=== PATIENT | male | born 1955 | race Caucasian/White ===

== ENCOUNTER 2017-02-19 20:09 | Inpatient (IN) | payer SELFPAY ==
[~2017-02-19] VITALS: Ht 180.3 cm; Wt 68.7 kg
[~2017-02-19 20:09] MED LIST: HYDROCODON ACETAMINOPH
[2017-02-19 21:17] LABS: Basophils # (auto) 0 uL; Basophils % (auto) 0.4 % (0.0-2.0); Eosinophils # (auto) 0.1 uL; Eosinophils % (auto) 1.4 % (0.0-7.0); Hematocrit 41.8 % (41.0-53.0); Hemoglobin 14.1 g/dL (13.5-17.5); Lymphocytes # (auto) 0.6 uL; Lymphocytes % (auto) 6.9 % (10.0-50.0); Mean Corpuscular Hgb Conc. 33.7 g/dL (32.0-36.0); Mean Corpuscular Volume 86.1 fL (80.0-100.0); Monocytes % (auto) 11.8 % (0.0-12.0); Neutrophils # (auto) 6.8 uL; Neutrophils % (auto) 79.5 % (37.0-80.0); Platelet Count (auto) 202 10^3/uL (140-450); Red Cell Distribution Width 13.9 % (11.6-16.0); White Blood Cell 8.5 10^3/uL (4.4-10.8)
[2017-02-19 21:35] LABS: Albumin 3.8 g/dL (3.4-5.0); BUN/Creatinine Ratio 18.2; Calcium 8.4 mg/dL (8.5-10.1); Potassium 3.7 mmol/L (3.5-5.1)
[2017-02-19 21:38] LABS: Bilirubin, Total 0.6 mg/dL (0.2-1.0); Total Protein 7.2 g/dL (6.4-8.2)
[2017-02-19 23:52] LABS: Urine Bilirubin Negative (Negative); Urine Blood Negative /uL (Negative); Urine Color Yellow (Yellow); Urine Glucose Normal (Normal); Urine Granular Cast FEW /lpf (0); Urine Hyaline Cast MANY /lpf (0 - 2); Urine Ketone Negative (Negative); Urine Mucus FEW (None Seen); Urine Nitrite Negative (Negative); Urine RBC 2 /hpf (0 - 3); Urine Squamous Epithelial Cell FEW /hpf (<5); Urine Urobilinogen Normal (Negative); Urine WBC Clumps PRESENT /hpf (None Seen); Urine pH 5.5 (5.0-8.0)
[2017-02-20] MEDS ORDERED: CLINDAMYCIN 300 MG IV ONE (03:49)
[2017-02-20] MEDS ORDERED: CLINDAMYCIN 900MG IV 50 ML IV ONE ×2 (05:30→10:00)
[2017-02-20 05:44] LABS: INR 0.96 (0.9-1.15); Partial Thromboplastin Time 26.6 sec (22.64-33.71); Prothrombin Time 10.4 sec (9.37-12.3)
[2017-02-20 06:09] LABS: Potassium 3.4 mmol/L (3.5-5.1)
[2017-02-20 06:10] LABS: Albumin 3.3 g/dL (3.4-5.0); BUN/Creatinine Ratio 20.6; Bilirubin, Total 0.5 mg/dL (0.2-1.0); Calcium 8.2 mg/dL (8.5-10.1); Total Protein 6.8 g/dL (6.4-8.2)
[2017-02-20 06:12] LABS: Basophils # (auto) 0 uL; Basophils % (auto) 0.6 % (0.0-2.0); Eosinophils # (auto) 0.2 uL; Hematocrit 38.9 % (41.0-53.0); Hemoglobin 13.3 g/dL (13.5-17.5); Lymphocytes # (auto) 0.7 uL; Lymphocytes % (auto) 11.8 % (10.0-50.0); Mean Corpuscular Hemoglobin 29.5 pg (28.0-32.0); Mean Corpuscular Volume 86.5 fL (80.0-100.0); Mean Platelet Volume 9.3 fL (7.4-10.4); Monocytes # (auto) 0.9 uL; Neutrophils % (auto) 67.6 % (37.0-80.0); Platelet Count (auto) 187 10^3/uL (140-450); Red Cell Distribution Width 14.3 % (11.6-16.0); White Blood Cell 5.9 10^3/uL (4.4-10.8)
[2017-02-20 06:21] LABS: Magnesium 2.2 mg/dL (1.6-2.6)
[2017-02-20] MEDS ORDERED: SODIUM CHLORIDE 0.9% 1,000 ML IV SCH (07:07)
[2017-02-20] MEDS ORDERED: TEMAZEPAM 15 MG CAP PO PRN (07:15)
[2017-02-20] MEDS ORDERED: MORPHINE SULF INJ 2 MG/ML SYRINGE 1ML IV PRN (07:15)
[2017-02-20] MEDS ORDERED: ONDANSETRON HCL 4 MG/2 ML VIAL IV PRN (07:15)
[2017-02-20] MEDS ORDERED: ACETAMINOPHEN 325 MG TAB PO PRN (07:15)
[2017-02-20] MEDS ORDERED: NITROGLYCERIN 0.4 MG SL TAB SL PRN (07:15)
[2017-02-20] MEDS ORDERED: VANCOMYCIN 1GM/250ML D5W 250 ML IV ONE (10:00)
[2017-02-20] MEDS ORDERED: ENOXAPARIN SOD 30 MG/0.3 ML SYRINGE SC SCH (10:00)
[2017-02-20] MEDS: MULTIPLE VITAMIN TAB PO SCH (10:41)
[2017-02-20] MEDS: ASCORBIC ACID 500 MG TAB PO SCH ×2 (10:41→20:59)
[2017-02-20] MEDS: FAMOTIDINE 20 MG TAB PO SCH ×2 (10:41→20:59)
[2017-02-20] MEDS: VANCOMYCIN 1GM/250ML D5W 250 ML IV SCH ×2 (10:41→21:00)
[2017-02-20] MEDS: ENOXAPARIN SOD 40 MG/0.4 ML SYRINGE SC SCH (10:41)
[2017-02-20] MEDS: ZINC SULFATE 220 MG CAP PO SCH (10:43)
[2017-02-20 11:00] VITALS: BP 96/56
[2017-02-20 12:28] VITALS: BP 137/81
[2017-02-20] MEDS: MORPHINE SULF INJ 2 MG/ML SYRINGE 1ML IV PRN ×2 (13:10→20:17)
[2017-02-20] MEDS ORDERED: POTASSIUM CHL 20 Meq TABLET PO ONE (13:45)
[2017-02-20] MEDS: CLINDAMYCIN 900MG IV 50 ML IV SCH (16:40)
[2017-02-20 16:51] VITALS: BP 123/76
[2017-02-20 22:00] VITALS: BP 127/73
[2017-02-21] MEDS: MORPHINE SULF INJ 2 MG/ML SYRINGE 1ML IV PRN ×4 (00:23→20:41)
[2017-02-21] MEDS: CLINDAMYCIN 900MG IV 50 ML IV SCH (05:04)
[2017-02-21 05:55] LABS: Basophils # (auto) 0 uL; Eosinophils # (auto) 0 uL; Eosinophils % (auto) 0.2 % (0.0-7.0); Hematocrit 40.7 % (41.0-53.0); Hemoglobin 13.6 g/dL (13.5-17.5); Lymphocytes # (auto) 0.6 uL; Lymphocytes % (auto) 9.3 % (10.0-50.0); Mean Corpuscular Hemoglobin 29.1 pg (28.0-32.0); Mean Corpuscular Hgb Conc. 33.5 g/dL (32.0-36.0); Mean Platelet Volume 8.6 fL (7.4-10.4); Monocytes % (auto) 15.3 % (0.0-12.0); Neutrophils # (auto) 5.1 uL; Neutrophils % (auto) 75.2 % (37.0-80.0); Platelet Count (auto) 166 10^3/uL (140-450); Red Cell Distribution Width 13.8 % (11.6-16.0); White Blood Cell 6.8 10^3/uL (4.4-10.8)
[2017-02-21 06:00] VITALS: BP 128/67
[2017-02-21 06:51] LABS: Albumin 3.2 g/dL (3.4-5.0); BUN/Creatinine Ratio 16.8; Bilirubin, Total 0.8 mg/dL (0.2-1.0); Calcium 7.9 mg/dL (8.5-10.1); Magnesium 2.1 mg/dL (1.6-2.6); Potassium 4.3 mmol/L (3.5-5.1); Total Protein 6.2 g/dL (6.4-8.2)
[2017-02-21] MEDS: SODIUM CHLORIDE 0.9% 1,000 ML IV SCH ×2 (07:07→21:25)
[2017-02-21 08:00] VITALS: BP 138/68
[2017-02-21] MEDS: VANCOMYCIN 1GM/250ML D5W 250 ML IV SCH ×2 (09:12→21:59)
[2017-02-21] MEDS ORDERED: VANCOMYCIN PER PHARMACY 0 MG IV SCH (10:15)
[2017-02-21] MEDS: MULTIPLE VITAMIN TAB PO SCH (10:19)
[2017-02-21] MEDS: ASCORBIC ACID 500 MG TAB PO SCH ×2 (10:19→21:52)
[2017-02-21] MEDS: FAMOTIDINE 20 MG TAB PO SCH ×2 (10:19→21:52)
[2017-02-21] MEDS: ZINC SULFATE 220 MG CAP PO SCH (10:19)
[2017-02-21] MEDS: ENOXAPARIN SOD 40 MG/0.4 ML SYRINGE SC SCH (10:20)
[2017-02-21 12:00] VITALS: BP 142/89
[2017-02-21 17:00] VITALS: BP 145/69
[2017-02-21] MEDS ORDERED: LEVOFLOXACIN 500MG 100 ML IV SCH (21:00)
[2017-02-21 22:00] VITALS: BP 140/77
[2017-02-21] MEDS: CLINDAMYCIN 600MG IV 50 ML IV SCH (23:00)
[2017-02-22] MEDS: MORPHINE SULF INJ 2 MG/ML SYRINGE 1ML IV PRN ×3 (00:45→08:58)
[2017-02-22 05:00] VITALS: BP 132/88
[2017-02-22 08:00] VITALS: BP 140/79
[2017-02-22] MEDS: VANCOMYCIN 1GM/250ML D5W 250 ML IV SCH (08:23)
[2017-02-22] MEDS: MULTIPLE VITAMIN TAB PO SCH (09:00)
[2017-02-22] MEDS: ZINC SULFATE 220 MG CAP PO SCH (09:00)
[2017-02-22] MEDS: FAMOTIDINE 20 MG TAB PO SCH (09:00)
[2017-02-22] MEDS: ASCORBIC ACID 500 MG TAB PO SCH (09:00)
[2017-02-22] MEDS: ENOXAPARIN SOD 40 MG/0.4 ML SYRINGE SC SCH (09:01)
[2017-02-22] MEDS: CLINDAMYCIN 600MG IV 50 ML IV SCH (09:01)
[2017-02-22 09:04] VITALS: BP 140/79
[2017-02-22] MEDS ORDERED: SACC250C PO (10:18)
[2017-02-22] MEDS ORDERED: CLIN1CAP4 PO (10:18)
[2017-02-22 11:44] LABS: Hepatitis B Surface Antibody Positive
[2017-02-22 12:17] VITALS: BP 128/63
[2017-02-22 12:23] VITALS: BP 140/79
[2017-02-22] MEDS ORDERED: LEVOFLOXACIN 500MG 100 ML IV SCH (20:00)
== END 2017-02-22 14:00 | disposition home or self-care (01) | DRG 602 ==
LOC: ER 20:24 → OVERFLOW 20:25 → EAST 02-20 07:50
PROVIDERS: ADMIT Emergency Medicine; ATTEND Internal Medicine
DX: L03.116 Cellulitis of left lower limb (principal); N17.0 Acute kidney failure with tubular necrosis; B19.10 Unspecified viral hepatitis B without hepatic coma; E87.6 Hypokalemia; F17.210 Nicotine dependence, cigarettes, uncomplicated; Z88.0 Allergy status to penicillin; F15.10 Other stimulant abuse, uncomplicated; F11.10 Opioid abuse, uncomplicated; Z71.6 Tobacco abuse counseling; F11.90 Opioid use, unspecified, uncomplicated; Z71.89 Other specified counseling; B19.20 Unspecified viral hepatitis C without hepatic coma
CPT/HCPCS: 36415; 71010; 80053; 80061; 80202; 80307; 81001; 83036; 83605; 83735; 85025; 85610; 85730; 86141; 86704; 86706; 86708; 86803; 87040; 87086; 87340; 93970; 96365; J1956; J3490

== ENCOUNTER 2022-03-27 15:13 | Emergency (ER) | payer MEDICAID ==
[~2022-03-27] VITALS: Ht 177.8 cm; Wt 74.8 kg
[~2022-03-27 15:13] MED LIST changes: +CLIN300C8 PO; +SACC250C PO
[2022-03-27 15:50] VITALS: BP 130/61
== END 2022-03-27 17:53 | disposition home or self-care (01) ==
LOC: ER 15:13
DX: S02.2XXA Fracture of nasal bones, initial encounter for closed fracture (principal); F17.210 Nicotine dependence, cigarettes, uncomplicated; Z79.2 Long term (current) use of antibiotics; Z79.899 Other long term (current) drug therapy; Z88.0 Allergy status to penicillin; Z90.89 Acquired absence of other organs; Y04.2XXA Assault by strike against or bumped into by another person, initial encounter; Y93.89 Activity, other specified; Y92.89 Other specified places as the place of occurrence of the external cause; Y99.8 Other external cause status
CPT/HCPCS: 70450; 70486